=== PATIENT | male | born 1970 | race Caucasian/White ===

== ENCOUNTER 2017-09-05 22:55 | Emergency (ER) | payer BC ==
[~2017-09-05] VITALS: Ht 177.8 cm; Wt 81.7 kg
[~2017-09-05 22:55] MED LIST: CLIN300 PO; ONDA4 PO; OXYACE5T PO
[2017-09-06 00:03] LABS: BASOPHILS ABSOLUTE AUTO 0.07 K/mm3 (0.00-0.23); BASOPHILS PERCENT AUTO 1 % (0-2); EOSINOPHILS ABSOLUTE AUTO 0.13 K/mm3 (0.00-0.68); EOSINOPHILS PERCENT AUTO 2 % (0-6); Hematocrit 52.2 % (37.0-53.0); Hemoglobin 20.2 g/dL (13.5-17.5); IMMATURE GRAN ABSOLUTE AUTO 0.02 K/mm3 (0.00-0.10); IMMATURE GRAN PERCENT AUTO 0 % (0-1); LYMPHOCYTES ABSOLUTE AUTO 3.32 K/mm3 (0.84-5.20); LYMPHOCYTES PERCENT AUTO 39 % (21-46); MONOCYTES ABSOLUTE AUTO 0.51 K/mm3 (0.16-1.47); MONOCYTES PERCENT AUTO 6 % (4-13); Mean Corpuscular HGB 33.4 pg (26.0-34.0); Mean Corpuscular HGB Conc 38.7 g/dL (31.5-36.5); Mean Corpuscular Volume 86 fL (80-100); Mean Platelet Volume 10.6 fL (9.1-12.4); NEUTROPHILS ABSOLUTE AUTO 4.44 K/mm3 (1.96-9.15); NEUTROPHILS PERCENT AUTO 52 % (41-73); Platelet Count 267 K/mm3 (150-400); RDW Coefficient Variation 13.2 % (11.7-14.2); RDW Standard Deviation 41.9 fL (35.1-46.3); Red Blood Cell Count 6.04 M/mm3 (4.30-5.90)
[2017-09-06 00:05] LABS: White Blood Cell Count 8.49 K/mm3 (4.00-11.30)
[2017-09-06 00:22] LABS: Anion Gap 16 mmol/L (6-16); CO2, Blood 17 mmol/L (21-32); Chloride, Blood 101 mmol/L (98-108); Potassium, Blood 4.3 mmol/L (3.5-5.5)
[2017-09-06 00:23] LABS: Alanine Aminotransfer (ALT/SGP 168 U/L (12-78); Albumin, Blood 3.9 g/dL (3.4-5.0); Albumin/Globulin Ratio 0.9 (0.8-1.8); Alk Phos 82 U/L (50-136); Aspartate Aminotrans (AST/SGOT 206 U/L (12-37); Bilirubin, Total 0.8 mg/dL (0.1-1.0); Blood Urea Nitrogen 12 mg/dL (8-24); Bun/Creatinine Ratio 17.6 (12.0-20.0); Creatinine, Blood 0.68 mg/dL (0.60-1.20); Globulin, Blood 4.5 g/dL (2.2-4.0); Glomerular Filtration Rate >60 (60-); Glucose, Blood 103 mg/dL (70-99); Total Protein, Blood 8.4 g/dL (6.4-8.2)
[2017-09-06 00:25] LABS: Sodium, Blood 134 mmol/L (136-145)
[2017-09-06 00:56] LABS: Cholesterol 266 mg/dL (50-200); Triglycerides 3315 mg/dL (30-160)
[2017-09-06] MEDS ORDERED: Zofran Odt4 MG SL (01:19)
[2017-09-06] MEDS ORDERED: Roxicodone5 MG PO (01:19)
[2017-09-06] MEDS ORDERED: ATOR20 PO (01:19)
== END 2017-09-06 01:35 | disposition home or self-care (01) ==
LOC: ER 22:55
PROVIDERS: Emergency Medicine; Physician Assistant
DX: R10.11 Right upper quadrant pain (principal); E78.1 Pure hyperglyceridemia; R79.89 Other specified abnormal findings of blood chemistry; F17.200 Nicotine dependence, unspecified, uncomplicated
CPT/HCPCS: 76705; 80053; 81000; 82465; 83690; 84478; 85025; J1885; J2405; J3010

== ENCOUNTER 2018-06-19 21:28 | Emergency (ER) | payer BC ==
[~2018-06-19] VITALS: Ht 177.8 cm; Wt 79.4 kg
[~2018-06-19 21:28] MED LIST changes: +ATOR20 PO; +Roxicodone5 MG PO; +Zofran Odt4 MG SL
[2018-06-19] MEDS ORDERED: IBUP600 PO (23:16)
[2018-06-19] MEDS ORDERED: CYCL10 PO (23:16)
== END 2018-06-19 23:45 | disposition home or self-care (01) ==
LOC: ER 21:28
DX: M53.3 Sacrococcygeal disorders, not elsewhere classified (principal); M54.5 Low back pain; F17.200 Nicotine dependence, unspecified, uncomplicated; Z79.899 Other long term (current) drug therapy
CPT/HCPCS: 72170; 96374; 96375; 99283-25; A9270-GY; J1170; J1885

== ENCOUNTER → 2018-09-03 | Outpatient (CLI) | payer BC ==
[~2018-09-03] MED LIST changes: +CYCL10 PO; +IBUP600 PO
[2018-09-03 12:45] LABS: U Amphetamine Screen Not Detected; U Barbituate Screen Not Detected; U Benzodiazapine Screen Not Detected; U Buprenorphine Screen Not Detected; U Cannabinoids Screen Not Detected; U Cocaine Screen Not Detected; U Methadone Screen Not Detected; U Methamphetamine Screen Not Detected; U Opiates Screen DETECTED; U Oxycodone Screen Not Detected; U Phencyclidine Screen Not Detected; U Propoxyphene Screen Not Detected
== END ==
LOC: LAB SHORT 12:16 → LAB 12:16
PROVIDERS: Registered Nurse
DX: Z51.81 Encounter for therapeutic drug level monitoring (principal); F41.0 Panic disorder [episodic paroxysmal anxiety]; Z79.899 Other long term (current) drug therapy
CPT/HCPCS: G0480

== ENCOUNTER → 2019-05-18 | Outpatient (CLI) | payer BC ==
[2019-05-18 17:13] LABS: BASOPHILS ABSOLUTE AUTO 0.07 K/mm3 (0.00-0.23); BASOPHILS PERCENT AUTO 1 % (0-2); EOSINOPHILS ABSOLUTE AUTO 0.18 K/mm3 (0.00-0.68); EOSINOPHILS PERCENT AUTO 1 % (0-6); Hematocrit 47.6 % (37.0-53.0); IMMATURE GRAN ABSOLUTE AUTO 0.04 K/mm3 (0.00-0.10); IMMATURE GRAN PERCENT AUTO 0 % (0-1); LYMPHOCYTES ABSOLUTE AUTO 1.87 K/mm3 (0.84-5.20); LYMPHOCYTES PERCENT AUTO 14 % (21-46); MONOCYTES PERCENT AUTO 4 % (4-13); Mean Corpuscular Volume 88 fL (80-100); Mean Platelet Volume 10.7 fL (9.1-12.4); NEUTROPHILS ABSOLUTE AUTO 10.93 K/mm3 (1.96-9.15); NEUTROPHILS PERCENT AUTO 80 % (41-73); Platelet Count 164 K/mm3 (150-400); RDW Coefficient Variation 16.1 % (11.7-14.2); Red Blood Cell Count 5.39 M/mm3 (4.30-5.90); White Blood Cell Count 13.59 K/mm3 (4.00-11.30)
[2019-05-18 17:20] LABS: Albumin, Blood 3.7 g/dL (3.4-5.0); Albumin/Globulin Ratio 0.9 (0.8-1.8); Alk Phos 85 U/L (50-136); Anion Gap 6 mmol/L (6-16); Aspartate Aminotrans (AST/SGOT 98 U/L (12-37); Bilirubin, Total 0.6 mg/dL (0.1-1.0); Blood Urea Nitrogen 10 mg/dL (8-24); Bun/Creatinine Ratio 30.5 (12.0-20.0); CO2, Blood 23 mmol/L (21-32); Chloride, Blood 98 mmol/L (98-108); Creatinine, Blood 0.33 mg/dL (0.60-1.20); Globulin, Blood 4.3 g/dL (2.2-4.0); Glomerular Filtration Rate >60 (60-); Glucose, Blood 203 mg/dL (70-99); Sodium, Blood 127 mmol/L (136-145)
[2019-05-18 17:21] LABS: Potassium, Blood 4.3 mmol/L (3.5-5.5)
[2019-05-18 17:22] LABS: Alanine Aminotransfer (ALT/SGP 91 U/L (12-78)
[2019-05-18 17:37] LABS: Hemoglobin 17.9 g/dL (13.5-17.5); Mean Corpuscular HGB 33.2 pg (26.0-34.0)
== END ==
LOC: LAB SHORT 15:30 → LAB 15:30
PROVIDERS: Physician Assistant
DX: R05 Cough (principal)
CPT/HCPCS: 80053; 83690; 85025

== ENCOUNTER 2019-07-08 10:08 | Emergency (ER) | payer BC, OTHER ==
[~2019-07-08] VITALS: Ht 177.8 cm; Wt 86.2 kg
[2019-07-08 10:58] LABS: BASOPHILS ABSOLUTE AUTO 0.07 K/mm3 (0.00-0.23); BASOPHILS PERCENT AUTO 1 % (0-2); EOSINOPHILS ABSOLUTE AUTO 0.16 K/mm3 (0.00-0.68); EOSINOPHILS PERCENT AUTO 1 % (0-6); Hematocrit 48.9 % (37.0-53.0); Hemoglobin 16.4 g/dL (13.5-17.5); IMMATURE GRAN ABSOLUTE AUTO 0.04 K/mm3 (0.00-0.10); IMMATURE GRAN PERCENT AUTO 0 % (0-1); LYMPHOCYTES ABSOLUTE AUTO 2.68 K/mm3 (0.84-5.20); LYMPHOCYTES PERCENT AUTO 24 % (21-46); MONOCYTES ABSOLUTE AUTO 0.91 K/mm3 (0.16-1.47); MONOCYTES PERCENT AUTO 8 % (4-13); Mean Corpuscular HGB 30.1 pg (26.0-34.0); Mean Corpuscular HGB Conc 33.5 g/dL (31.5-36.5); Mean Corpuscular Volume 90 fL (80-100); NEUTROPHILS PERCENT AUTO 65 % (41-73); Platelet Count 192 K/mm3 (150-400); RDW Coefficient Variation 14.4 % (11.7-14.2); RDW Standard Deviation 46.8 fL (35.1-46.3); Red Blood Cell Count 5.44 M/mm3 (4.30-5.90); White Blood Cell Count 11.16 K/mm3 (4.00-11.30)
[2019-07-08 11:18] LABS: Alanine Aminotransfer (ALT/SGP 52 U/L (12-78); Albumin, Blood 3.7 g/dL (3.4-5.0); Albumin/Globulin Ratio 0.9 (0.8-1.8); Alk Phos 80 U/L (50-136); Anion Gap 8 mmol/L (6-16); Aspartate Aminotrans (AST/SGOT 27 U/L (12-37); Bilirubin, Total 0.7 mg/dL (0.1-1.0); Blood Urea Nitrogen 12 mg/dL (8-24); Bun/Creatinine Ratio 13.4 (12.0-20.0); CO2, Blood 24 mmol/L (21-32); Calcium, Blood 8.5 mg/dL (8.5-10.1); Chloride, Blood 103 mmol/L (98-108); Globulin, Blood 3.9 g/dL (2.2-4.0); Glomerular Filtration Rate >60 (60-); Glucose, Blood 114 mg/dL (70-99); Sodium, Blood 135 mmol/L (136-145); Total Protein, Blood 7.6 g/dL (6.4-8.2)
[2019-07-08] MEDS ORDERED: Augmentin 875-1 EACH PO (12:21)
[2019-07-08] MEDS ORDERED: Percocet 5-3251 EACH PO (12:21)
== END 2019-07-08 12:36 | disposition home or self-care (01) ==
LOC: ER 10:08
PROVIDERS: Physician Assistant
DX: K61.1 Rectal abscess (principal); F17.200 Nicotine dependence, unspecified, uncomplicated
CPT/HCPCS: 36415; 46050; 72193; 80053; 85025; 96374-59; 99284-25; J1170; Q9967

== ENCOUNTER → 2020-02-10 | Outpatient (CLI) | payer BC ==
[~2020-02-10] MED LIST changes: +Augmentin 875-1 EACH PO; +Percocet 5-3251 EACH PO
[2020-02-10 07:42] LABS: Alanine Aminotransfer (ALT/SGP 43 U/L (12-78); Albumin, Blood 3.7 g/dL (3.4-5.0); Albumin/Globulin Ratio 0.9 (0.8-1.8); Alk Phos 54 U/L (50-136); Aspartate Aminotrans (AST/SGOT 20 U/L (12-37); Bilirubin, Direct <0.1 mg/dL (0.0-0.3); Bilirubin, Indirect Unable to Calculate mg/dL (0.1-0.7); Bilirubin, Total 0.4 mg/dL (0.1-1.0); CHOL/HDL RATIO 9.8; Cholesterol 275 mg/dL (50-200); Globulin, Blood 3.9 g/dL (2.2-4.0); HDL Cholesterol 28 mg/dL (>39); LDL/HDL RATIO Unable to Calculate; Low Density Lipoprotein Chol Unable to Calculate mg/dL (0-110); Total Protein, Blood 7.6 g/dL (6.4-8.2); Triglycerides 780 mg/dL (30-160); Very Low Density Lipoprot Chol Unable to Calculate mg/dL (6-32)
== END | disposition home or self-care (01) ==
LOC: LAB SHORT 07:16 → PLD 07:16
PROVIDERS: Registered Nurse
DX: E78.1 Pure hyperglyceridemia (principal); R74.8 Abnormal levels of other serum enzymes
CPT/HCPCS: 80061; 80076

== ENCOUNTER 2021-04-17 13:38 | Inpatient (IN) | payer OTHER ==
[~2021-04-17] VITALS: Ht 172.7 cm; Wt 85.8 kg
[2021-04-17 14:14] LABS: BASOPHILS ABSOLUTE AUTO 0.05 K/mm3 (0.00-0.23); BASOPHILS PERCENT AUTO 1 % (0-2); EOSINOPHILS ABSOLUTE AUTO 0.02 K/mm3 (0.00-0.68); EOSINOPHILS PERCENT AUTO 0 % (0-6); Hematocrit 45.5 % (37.0-53.0); Hemoglobin 15.9 g/dL (13.5-17.5); IMMATURE GRAN ABSOLUTE AUTO 0.11 K/mm3 (0.00-0.10); IMMATURE GRAN PERCENT AUTO 1 % (0-1); LYMPHOCYTES ABSOLUTE AUTO 1.77 K/mm3 (0.84-5.20); LYMPHOCYTES PERCENT AUTO 16 % (21-46); MONOCYTES ABSOLUTE AUTO 0.62 K/mm3 (0.16-1.47); MONOCYTES PERCENT AUTO 6 % (4-13); Mean Corpuscular HGB Conc 34.9 g/dL (31.5-36.5); Mean Corpuscular Volume 89 fL (80-100); Mean Platelet Volume 10.1 fL (9.1-12.4); NEUTROPHILS PERCENT AUTO 76 % (41-73); Platelet Count 103 K/mm3 (150-400); RDW Coefficient Variation 16.2 % (11.7-14.2); RDW Standard Deviation 53.2 fL (35.1-46.3); Red Blood Cell Count 5.13 M/mm3 (4.30-5.90); White Blood Cell Count 10.77 K/mm3 (4.00-11.30)
[2021-04-17 14:24] LABS: Alanine Aminotransfer (ALT/SGP 284 U/L (12-78); Albumin, Blood 3.6 g/dL (3.4-5.0); Albumin/Globulin Ratio 0.9 (0.8-1.8); Alk Phos 146 U/L (50-136); Anion Gap 20 mmol/L (6-16); Aspartate Aminotrans (AST/SGOT 596 U/L (12-37); Bilirubin, Direct 0.3 mg/dL (0.0-0.3); Bilirubin, Indirect 0.9 mg/dL (0.1-0.7); Bilirubin, Total 1.2 mg/dL (0.1-1.0); Blood Urea Nitrogen 8 mg/dL (8-24); CO2, Blood 16 mmol/L (21-32); Calcium, Blood 8.8 mg/dL (8.5-10.1); Chloride, Blood 93 mmol/L (98-108); Ethanol (Alcohol), Blood, Med 12 mg/dL; Glomerular Filtration Rate >60 (60-); Glucose, Blood 166 mg/dL (70-99); Potassium, Blood 4.4 mmol/L (3.5-5.5); Sodium, Blood 129 mmol/L (136-145); Total Protein, Blood 7.6 g/dL (6.4-8.2)
[2021-04-17 14:50] LABS: Base Excess Venous -1.4 mmol/L; Bicarbonate Venous 24.2 mmol/L (24.0-30.0); PCO2 Venous 30.4 mmHg (38-42); pH Blood Venous 7.47 (7.34-7.37)
[2021-04-17 15:00] LABS: Beta-hydroxybutyrate 7.7 mg/dL (0.2-2.8); Prolactin 39.4 ng/mL (2.5-17.4); Salicylate <1.7 mg/dL (2.8-20.0)
[2021-04-18 04:21] LABS: Anion Gap 12 mmol/L (6-16); Blood Urea Nitrogen 7 mg/dL (8-24); CO2, Blood 23 mmol/L (21-32); Calcium, Blood 7.9 mg/dL (8.5-10.1); Chloride, Blood 101 mmol/L (98-108); Creatinine, Blood 0.78 mg/dL (0.60-1.20); Glomerular Filtration Rate >60 (60-); Glucose, Blood 96 mg/dL (70-99); Magnesium, Blood 2.5 mg/dL (1.6-2.4); Phosphorus, Blood 2.7 mg/dL (2.5-4.9); Potassium, Blood 3.3 mmol/L (3.5-5.5); Sodium, Blood 136 mmol/L (136-145)
--- NOTE | 2021-04-18 06:20 | NUR ---
Rested most of night. CWOL score increasing later into night. Medicated as needed. More oriented this am but continues to have tremors and sweats. Complains of tongue hurting and swollen from biting during seizure. Order recv'd for vicous lidcaine. denies other complaints at this time
--- NOTE | 2021-04-18 07:25 | NUR ---
Pt awakened easily this morning, states that he feels some mild headache, mild anxiety, and mild nausea. CIWA score 7; also diaphoretic and febrile at 101.1. C/O tongue being sore and noted cuts and swelling, aminata on the right side. Diet altered to full liquid for ease of eating due to pain while chewing he states.
[2021-04-18 09:15] LABS: Source, Urine Clean Catch
[2021-04-18 09:24] LABS: Appearance, Urine Clear (Clear); Bilirubin, Urine Neg (Neg); Blood, Urine 2+ (Neg); Glucose Qualitative, Urine Neg (Neg); Ketones, Urine 3+ (Neg); Leukocyte Esterase, Urine Neg (Neg); Nitrite, Urine Neg (Neg); Protein, Urine 2+ (Neg); Urobilinogen, Urine 2+ (Normal)
[2021-04-18 09:33] LABS: Color, Urine Orange (P-Yellow)
[2021-04-18 09:35] LABS: Bacteria Rare /hpf; Mucus Heavy (0-Heavy); Red Blood Cells, Urine 0-2 /hpf (0-2); Squamous Epithelial Cells Rare /hpf (Few); White Blood Cells, Urine 0-2 /hpf (0-5)
--- NOTE | 2021-04-18 10:19 | NUR ---
Pt's mother Janet called, requesting an update on Chico's condition. [place]ico gave verbal consent for her to be updated. I spoke with her on the phone, and updated her on the pt's status and ongoing care. She expressed appreciation, and requested a call when the results of his Chest xray are known.
--- NOTE | 2021-04-18 11:16 | NUR ---
Call back to Janet, pt's mother, to let her know the results of the Chest x ray.
[2021-04-18 19:24] LABS: Adenovirus F 40/41 Not Detected (NOT DETECT); Astrovirus Not Detected (NOT DETECT); Campylobacter Sp Not Detected (NOT DETECT); Cryptosporidium Not Detected (NOT DETECT); Cyclospora Cayetanensis Not Detected (NOT DETECT); E. Coli O157 Not Detected (NOT DETECT); Entamoeba Histolytica Not Detected (NOT DETECT); Enteroaggregative E. coli-EAEC Not Detected (NOT DETECT); Enteropathogenic E. coli-EPEC Not Detected (NOT DETECT); Enterotoxigenic E. coli-ETEC Not Detected (NOT DETECT); Giardia Lamblia Not Detected (NOT DETECT); Norovirus GI/GII Not Detected (NOT DETECT); Plesiomonas Shigelloides Not Detected (NOT DETECT); Rotavirus A Not Detected (NOT DETECT); Salmonella Sp Not Detected (NOT DETECT); Sapovirus Not Detected (NOT DETECT); Shiga Toxin-prod E. coli-STEC Not Detected (NOT DETECT); Shigella/Enteroin E. coli-EIEC Not Detected (NOT DETECT); Vibrio Cholerae Not Detected (NOT DETECT); Vibrio Sp Not Detected (NOT DETECT); Yersinia Enterocolitica Not Detected (NOT DETECT)
--- NOTE | 2021-04-18 22:15 | NUR ---
Assumed care of patient at 1900. A/Ox4. CIWA 8, medicated per emar. No c/o pain or cp. Unsteady gait and forgets to call for SBA, re-educated patient on safety. Clear upper lobes with fine crackles at bases. Occasional productive cough with clear/plascencia sputum. Maintains above 95% on RA. SR on tele. VSS. Diarrhea with cultures that came back negative. Will update as changes occur.
[2021-04-19 04:26] LABS: Anion Gap 9 mmol/L (6-16); Blood Urea Nitrogen 5 mg/dL (8-24); CO2, Blood 22 mmol/L (21-32); Calcium, Blood 7.8 mg/dL (8.5-10.1); Chloride, Blood 107 mmol/L (98-108); Creatinine, Blood 0.72 mg/dL (0.60-1.20); Glomerular Filtration Rate >60 (60-); Glucose, Blood 97 mg/dL (70-99); Magnesium, Blood 2.5 mg/dL (1.6-2.4); Phosphorus, Blood 2.5 mg/dL (2.5-4.9); Potassium, Blood 3.4 mmol/L (3.5-5.5); Sodium, Blood 138 mmol/L (136-145)
--- NOTE | 2021-04-19 13:07 | NUR ---
CARE NOTE PT IS ALERT AND ORIENTED X 4. VITAL SIGNS STABLE. SEE PREVIOUS CIWA SCORE FOR ALCOHOL WITHDRAWL ASSESSMENT. PT MEDICATED PER EMAR ACCORDING TO CIWA SCORE AND PT HAS BEEN SLEEPING SINCE WITH EXCEPTION OF EATING LUNCH. WILL CONTINUE TO MONITOR. CALL LIGHT IN REACH, BED ALARM ON.
[2021-04-19] MEDS ORDERED: CHLO25 PO (15:11)
--- NOTE | 2021-04-19 15:45 | NUR ---
DISCHARGE NOTE PT REMAINED ALERT AND ORIENTED X 4. VITAL SIGNS STABLE T/O SHIFT, SPO2 >95% VIA ROOM AIR. PT WAS STEADY ON FEET AND ABLE TO EAT DURING SHIFT. THIS NURSE WENT OVER DISCHARGE INSTRUCTIONS WITH PATIENT INCLUDING FOLLOW UP APPOINTMENT WITH PCP, NO DRIVING DUE TO SEIZURE ACTIVITY, AND NEW MEDICATION ORDER. PT LEFT PCU APPROX. 1530 VIA WHEELCHAIR ASSISTED BY BUNNY MAHMOOD TO BE PICKED UP BY SIGNIFICANT OTHER.
== END 2021-04-19 15:31 | disposition home or self-care (01) | DRG 897 ==
LOC: ER 13:38 → PCU 16:06
PROVIDERS: Student in an Organized Health Care Education/Training Program; ADMIT Internal Medicine
PROC: HZ2ZZZZ Detoxification Services for Substance Abuse Treatment (ICD-10-PCS; principal; 2021-04-17)
DX: F10.139 Alcohol abuse with withdrawal, unspecified (principal); E87.2 Acidosis; E87.1 Hypo-osmolality and hyponatremia; G40.409 Other generalized epilepsy and epileptic syndromes, not intractable, without status epilepticus; R73.9 Hyperglycemia, unspecified; E87.6 Hypokalemia; F17.210 Nicotine dependence, cigarettes, uncomplicated; Z28.21 Immunization not carried out because of patient refusal; Y90.0 Blood alcohol level of less than 20 mg/100 ml
CPT/HCPCS: 0097U; 36415; 70450; 71046; 80048; 80076; 81001; 82010; 82803; 82947; 83605; 83735; 84100; 84146; 85025; 93005; 93010; 96374; 96375; 99285-25; A9270; G0480; J2060; J2405; J3411; J3475; J7030; J7042

== ENCOUNTER → 2023-10-13 | Outpatient (CLI) | payer BC ==
[~2023-10-13] MED LIST changes: +CHLO25 PO; +TRAZ50 PO
[2023-10-13 01:50] LABS: LDL/HDL RATIO 2.4
[2023-10-13 01:51] LABS: Alanine Aminotransfer (ALT/SGP 105 U/L (12-78); Alk Phos 80 U/L (50-136); Anion Gap 10 mmol/L (3-11); Aspartate Aminotrans (AST/SGOT 60 U/L (12-37); Bilirubin, Total 0.6 mg/dL (0.1-1.0); Blood Urea Nitrogen 13 mg/dL (8-24); Bun/Creatinine Ratio 14.1 (12.0-20.0); CHOL/HDL RATIO 5.1; CO2, Blood 25 mmol/L (21-32); Chloride, Blood 110 mmol/L (98-108); Cholesterol 154 mg/dL (50-200); Creatinine, Blood 0.92 mg/dL (0.60-1.20); Globulin, Blood 4.2 g/dL (2.2-4.0); Glomerular Filtration Rate 101 (60-); Glucose, Blood 95 mg/dL (70-99); HDL Cholesterol 30 mg/dL (>39); Low Density Lipoprotein Chol 71 mg/dL (0-110); Potassium, Blood 5.3 mmol/L (3.5-5.5); Sodium, Blood 140 mmol/L (136-145); Total Protein, Blood 8.2 g/dL (6.4-8.2); Triglycerides 264 mg/dL (30-160); Very Low Density Lipoprot Chol 52 mg/dL (6-32)
== END ==
LOC: LAB 01:13 → LAB SHORT 01:13
PROVIDERS: Nurse Practitioner Family
DX: E78.49 Other hyperlipidemia (principal); E78.1 Pure hyperglyceridemia
CPT/HCPCS: 80053; 80061; 83036

== ENCOUNTER 2024-01-14 22:45 | Emergency (ER) | payer BC ==
[~2024-01-14] VITALS: Ht 177.8 cm; Wt 81.7 kg
[2024-01-14 22:50] VITALS: BP 135/90
== END 2024-01-14 23:34 | disposition home or self-care (01) ==
LOC: ER 22:45
DX: R07.81 Pleurodynia (principal); M54.2 Cervicalgia; Z79.899 Other long term (current) drug therapy; W17.89XA Other fall from one level to another, initial encounter
CPT/HCPCS: 71101; 99283-25